=== PATIENT | male | born 1990 | race Caucasian/White ===

== ENCOUNTER 2021-10-21 17:35 | Emergency (ER) | payer MEDICAID ==
[~2021-10-21] VITALS: Ht 170.2 cm; Wt 86.2 kg
[2021-10-21 17:38] VITALS: BP 161/96
--- NOTE | 2021-10-21 17:38 | NUR ---
BIBA C/O ALOC /POSS OD, FOUND UNRESPONSIVE GCS 1-1-1, CPR X 2 ROUNDS BY PD, [facility] ON SCENE GAVE 0.5 MG NARCAN IN + BVM; PT NOW A&OX4 GCS 4-5-6. PT DENIES N/V/D; SKIN IS INTACT, PINK/WARM/DRY; AAOX4, PERRL, WITH EVEN AND STEADY GAIT; LUNGS CLEAR BL, BREATHING UNLABORED; HR EVEN AND REGULAR, BL PERIPHERAL PULSES PRESENT; BS ACTIVE X4, NO TENDERNESS TO PALPATION, PT DENIES ANY FEVER, CP, SOB, OR COUGH AT THIS TIME; PT STATES 0/10 PAIN AT THIS TIME; VSS; PATIENT POSITIONED FOR COMFORT; HOB ELEVATED; BEDRAILS UP X2; BED DOWN. ER MD MADE AWARE OF PT STATUS. HX HEROINE USE
--- NOTE | 2021-10-21 19:20 | NUR ---
REPORT RECEIVED FROM DEBBI PAN FOR CONTINUITY OF PT CARE AT THIS TIME.
--- NOTE | 2021-10-21 19:20 | NUR ---
Report and transfer of care endorsed to DEBBI Crespo.
--- NOTE | 2021-10-21 19:27 | NUR ---
PT LAYING IN BED W HOB ELEVATED. BED LOCKED IN LOWEST POSITION W X1 SIDERAIL UP. PT USING HIS PHONE. PT AOX4, GCS 15. PT DENIES ANY PAIN, SOB, DIZZYNESS OR OTHER SYMPTOMS. PT CONNECTED TO MONITOR TACHY AROUND 109HR OTHERWISE VSS. BREATHING EVEN AND UNLABORED. PT PROVIDED W WATER PER REQUEST. ALL NEEDS MET AT THIS TIME.
[2021-10-21] MEDS ORDERED: NACL 0.9% 1,000 ML IV ONE (20:05)
--- NOTE | 2021-10-21 20:11 | NUR ---
PROVIDED PT CHONG Koenig UPDATE ON PT STATUS. PER PT OK TO PROVIDE HEALTH STATUS INFO TO .
--- NOTE | 2021-10-21 21:32 | NUR ---
IV TO L AC INFILTRATED, REMOVED W IV CATH INTCAT. NEW IV INSERTED TO L HAND 20G, PATENT, FLASH BACK, AND FLUSHING WELL.
--- NOTE | 2021-10-21 22:00 | NUR ---
PT HR IMPROVED NOW FLUCTUATING BTWEEN 89-108. PT DENIES ANY SYMPTOMS.
--- NOTE | 2021-10-21 23:24 | NUR ---
PT UP FOR DISCHARGE. CONTACTED PT FOR TRANSPORTATION, ETA 10MIN.
[2021-10-21 23:34] VITALS: BP 143/77
--- NOTE | 2021-10-21 23:34 | NUR ---
Patient discharged with v/s stable. Written and verbal after care instructions given and explained. Patient verbalized understanding. Ambulatory with steady gait. All questions addressed prior to discharge. Advised to follow up with PMD.
== END 2021-10-21 23:34 | disposition home or self-care (01) ==
LOC: MED 17:35
DX: T40.601A Poisoning by unspecified narcotics, accidental (unintentional), initial encounter (principal); Y92.89 Other specified places as the place of occurrence of the external cause
CPT/HCPCS: 71045; 96360; 99283

== ENCOUNTER 2022-03-27 21:45 | Emergency (ER) | payer MEDICAID ==
[~2022-03-27] VITALS: Ht 170.2 cm; Wt 90.7 kg
[2022-03-27 21:47] VITALS: BP 170/99
--- NOTE | 2022-03-27 21:50 | NUR ---
31 Y.O. M BIBA FROM HOME C/O OD ON HEROIN. PT FOUND PULSELESS/AGONAL BY PD. PER EMS NARCAN 1MG GIVEN IV. PT AWAKE AND ALERT AT PRESENTATION. PT DID METH AND HEROIN TODAY. DENIES ANY N/V/D, CHEST PAIN AND SOB. PT ABLE TO AMBULATE TO THE BED, A&OX3, STEADY GAIT, NO SIGNS OF RESPIRATORY DISTRESS, AND VITALS WNL FOR PT. MEDHX- IV DRUG ABUSE NKA
[2022-03-27] MEDS ORDERED: NALO4SPR NS (22:25)
--- NOTE | 2022-03-27 22:32 | NUR ---
PT GIVEN WATER. ALL PT NEEDS MEET AT THIS TIME.
[2022-03-27 22:45] LABS: BARBITURATE, URINE NEGATIVE ng/ml (NEG <=200); BENZODIAZEPINE, URINE NEGATIVE ng/mL (NEG <=200); CANNABINOID, URINE POSITIVE ng/mL (NEG <=50); COCAINE, URINE NEGATIVE ng/mL (NEG <=300)
[2022-03-27 22:46] LABS: OPIATE, URINE POSITIVE ng/mL (NEG <=2000); PHENCYCLIDINE SCREEN,URINE NEGATIVE ng/mL (NEG <=25)
[2022-03-28 00:05] VITALS: BP 170/99
--- NOTE | 2022-03-28 00:06 | NUR ---
Patient discharged with v/s stable. Written and verbal after care instructions given and explained. Patient alert, oriented and verbalized understanding of instructions. Ambulatory with steady gait. All questions addressed prior to discharge. ID band removed. Patient advised to follow up with PMD. Rx of NARCAN given. Patient educated on indication of medication including possible reaction and side effects. Opportunity to ask questions provided and answered.
== END 2022-03-27 23:58 | disposition home or self-care (01) ==
LOC: MED 21:45
DX: T40.601A Poisoning by unspecified narcotics, accidental (unintentional), initial encounter (principal); F19.10 Other psychoactive substance abuse, uncomplicated; X58.XXXA Exposure to other specified factors, initial encounter
CPT/HCPCS: 80305; 99283

== ENCOUNTER 2023-12-04 23:21 | Emergency (ER) | payer MEDICAID ==
[~2023-12-04] VITALS: Ht 170.2 cm; Wt 72.6 kg
[~2023-12-04 23:21] MED LIST: NALO4SPR NS
[2023-12-04 23:32] VITALS: BP 136/60; PULSE 109; RESP 14; TEMP 97.4; O2SAT 97
[2023-12-05] MEDS ORDERED: levETIRAcetam 100 MG/ML VIAL IV ONE (00:40)
[2023-12-05 00:51] LABS: APPEARANCE,URINE CLEAR (CLEAR); BILIRUBIN,URINE NEGATIVE (NEGATIVE); BLOOD, URINE 1+ (NEGATIVE); COLOR,URINE YELLOW (YELLOW); LEUKOCYTE ESTERASE ,URINE NEGATIVE (NEGATIVE); NITRITE, URINE NEGATIVE (NEGATIVE); PROTEIN,URINE 1+ (NEGATIVE); UGLUCOSE NEGATIVE (NEGATIVE); UROBILINOGEN,URINE 0.2 EU/dL (0.2 - 1)
[2023-12-05] MEDS: KETOROLAC 30 MG/ML VIAL IVP ONE (00:52)
[2023-12-05] MEDS: levETIRAcetam 1,000 MG in NACL 0.9% 100 ML IV ONE (00:58)
[2023-12-05 01:06] LABS: AMPHETAMINE, URINE NEGATIVE ng/ml (NEG <=1000); BARBITURATE, URINE NEGATIVE ng/ml (NEG <=200); BENZODIAZEPINE, URINE NEGATIVE ng/mL (NEG <=200); CANNABINOID, URINE NEGATIVE ng/mL (NEG <=50); COCAINE, URINE NEGATIVE ng/mL (NEG <=300)
[2023-12-05 01:07] LABS: OPIATE, URINE POSITIVE ng/mL (NEG <=2000); PHENCYCLIDINE SCREEN,URINE POSITIVE ng/mL (NEG <=25)
[2023-12-05 01:09] LABS: BACTERIA,URINE OCCASSIONAL /HPF (None Seen); RBC,URINE NONE SEEN /HPF (0-5); WBC,URINE NONE SEEN /HPF (0-5)
[2023-12-05 01:10] LABS: SQUAMOUS EPITHELIAL CELL,UR 0-3 (FEW) /LPF (0-3 (FEW))
[2023-12-05 01:26] LABS: BASOPHILS % (AUTO) 0.4 % (0.0-2.0); EOSINOPHILS # (AUTO) 0.2 K/uL (0-0.4); EOSINOPHILS % (AUTO) 1.6 % (0.0-4.0); HEMATOCRIT 39.5 % (36-52); HEMOGLOBIN 13.8 g/dL (12.0-18.0); LYMPHOCYTES # (AUTO) 1.8 K/uL (2.0-11.5); LYMPHOCYTES % (AUTO) 15.7 % (20.5-51.1); MEAN CORPUSCULAR HEMOGLOBIN 32 pg (27-31); MEAN CORPUSCULAR HGB CONC 35 g/dL (33-37); MEAN CORPUSCULAR VOLUME 90.9 fL (80-94); MONOCYTES % (AUTO) 8.6 % (1.7-9.3); NEUTROPHILS # (AUTO) 8.6 K/uL (1.8-7.7); NEUTROPHILS % (AUTO) 73.7 % (42.2-75.2); PLATELET COUNT (AUTO) 259 K/uL (140-450); RED BLOOD CELL COUNT(AUTO) 4.35 MIL/uL (4.20-6.10); RED CELL DISTRIBUTION WIDTH 12.8 % (11.6-13.7); WHITE BLOOD COUNT (AUTO) 11.7 K/uL (4.8-10.8)
[2023-12-05 01:32] VITALS: BP 108/45; PULSE 79; RESP 16; O2SAT 95
[2023-12-05 01:36] LABS: ANION GAP 11.2 (8-16); CALCIUM 8.1 mg/dL (8.5-10.1); CARBON DIOXIDE 26.8 mmol/L (21-32); CREATININE 1.2 mg/dL (0.6-1.3)
== END 2023-12-05 02:31 | disposition home or self-care (01) ==
LOC: MED 23:21
DX: G40.909 Epilepsy, unspecified, not intractable, without status epilepticus (principal); F11.90 Opioid use, unspecified, uncomplicated; Z79.899 Other long term (current) drug therapy
CPT/HCPCS: 36415; 70450; 80048; 80305; 81001; 85025; 96365; 96375; 99285; J1885; J1953